=== PATIENT | female | born 1965 | race Caucasian/White ===

== ENCOUNTER 2016-04-26 23:07 | Emergency (ER) | payer OTHER | END 2016-04-27 04:20 | disposition home or self-care (01) | LOC: ER1 23:07 | DX: J40 Bronchitis, not specified as acute or chronic (principal); E11.9 Type 2 diabetes mellitus without complications; F17.200 Nicotine dependence, unspecified, uncomplicated; Z88.0 Allergy status to penicillin | CPT/HCPCS: 71020; 81001; 87081; 87880; 94664; 99283 ==